=== PATIENT | female | born 1945 | race Caucasian/White ===

== ENCOUNTER 2020-09-16 11:01 | Inpatient (IN) | payer MEDICARE, SELFPAY ==
[2020-09-16] VITALS (13 sets, daily range): BP systolic 106–152; BP diastolic 39–86; PULSE 49–57; RESP 14–19; TEMP 35.5–36.4; O2SAT 93–100; BMI 53.0
--- NOTE | ~2020-09-16 | CT_ITS ---
EXAMINATION: CT brain wo con INDICATION: Slurred speech COMPARISON: None TECHNIQUE: Standard unenhanced head CT. The dose-length product (DLP) was 605.33 mGy-cm. The mA was a djusted according to patient size. Iterative reconstruction technique was employed. FINDINGS: There is no intracranial hemorrhage, acute infarction, or abnormal mass lesion. The ventric les are normal. There is no abnormal mass effect or midline shift. The newman-white matter differentiat ion is normal. The basal cisterns are patent. Changes in the globes are likely from ocular lens surge ry. There is near complete opacification of the right maxillary sinus. There is partial opacification of the ethmoidal air cells. A left mastoid effusion is noted. There is a rim calcified scalp lesion at the cranial vertex to the right of midline, likely benign. IMPRESSION: 1. No acute intracranial abnormality. 2. Sinus disease and left mastoid effusion. Reviewed, dictated and finalized at location A. GY OPERATIONS VICE PRESIDENT
--- NOTE | ~2020-09-16 | XR_ITS ---
EXAMINATION: XR knee LT 2V EXAM DATE: 09/16/2020 18:52 INDICATION: Left knee pain. TECHNIQUE: Frontal and lateral projections of the left knee. Correlation is made to contralateral kn ee same date. FINDINGS: There are no acute left knee fractures or dislocations identified. There is no subcutaneou s gas. There is moderate-sized joint effusion. There are no radiopaque foreign bodies. There is m oderate to severe primary osteoarthritis. IMPRESSION: 1. XR knee LT 2V exam without acute osseous findings. 2. Moderate-sized joint effusion. 3. Moderate to severe osteoarthritis. Reviewed, dictated and finalized at location A. RY CUTTER
--- NOTE | ~2020-09-16 | XR_ITS ---
EXAMINATION: XR knee RT 2V EXAM DATE: 09/16/2020 18:53 INDICATION: No known recent injury provided at this time. Pain of the right knee. TECHNIQUE: Frontal and lateral projections of the right knee. Correlation is made to contralateral k nee same date. FINDINGS: There are no acute right knee fractures or dislocations identified. There is no subcutaneo us gas. There is moderate-sized joint effusion. Peripherally calcified regions in the subcutaneous f at medially likely granulomas, chronic fat necrosis. There are no radiopaque foreign bodies. There i s moderate to severe primary osteoarthritis. IMPRESSION: 1. Right knee exam without acute osseous findings. 2. Moderate-sized joint effusion. 3. Moderate to severe osteoarthritis. Reviewed, dictated and finalized at location A. ET TECHNICIAN
--- NOTE | ~2020-09-16 | US_ITS ---
EXAMINATION: US abdomen limited EXAM DATE: 09/18/2020 12:18 INDICATION: Pancytopenia. Assess spleen size. TECHNIQUE: Multiple grayscale and Doppler images of the left upper quadrant were obtained (by a techn ologist who performed the scan) and subsequently reviewed. There is no prior study for comparison. FINDINGS: The spleen measures 11.0 cm maximal dimension, is normal in size and morphology. IMPRESSION: Normal spleen size. Reviewed, dictated and finalized at location A. RIMENTAL PHYSICIST IMPRESSION: Normal spleen size.
--- NOTE | ~2020-09-16 | US_ITS ---
EXAMINATION: US carotid duplex BI EXAM DATE: 09/17/2020 07:44 INDICATION: Stroke symptoms. Facial droop and slurred speech. TECHNIQUE: Grayscale, color and pulsed Doppler images of the cervical carotid arteries were obtained . The degree of vessel stenosis is placed in one of the following categories: normal, <50% stenosis, 50-69% stenosis, >=70% stenosis but less than near-occlusion, near-occlusion, or occlusion. Note that percent stenosis relative to normal distal artery lumen diameter is indirectly measured from velocit y measurements as described by Yuri, et al. Radiology 2003; 229:340-346. There is no prior study fo r comparison. FINDINGS: RIGHT SIDE: Right common carotid artery peak systolic velocity (PSV in cm/s): 134 Right bulb/internal carotid artery peak systolic velocity (PSV in cm/s): 132 Right internal carotid artery end diastolic velocity (EDV in cm/s): 13.6 Right ICA/CCA peak systolic ratio: 1.0 Right external carotid artery peak systolic velocity (PSV in cm/s): 136 Right vertebral artery antegrade flow: yes There is no focal plaque identified. LEFT SIDE: Left common carotid artery peak systolic velocity (PSV in cm/s): 132 Left bulb/internal carotid artery peak systolic velocity (PSV in cm/s): 124 Left internal carotid artery end diastolic velocity (EDV in cm/s): 13.6 Left ICA/CCA peak systolic ratio: 0.9 Left external carotid artery peak systolic velocity (PSV in cm/s): 184 Left vertebral artery antegrade flow: yes There is no focal plaque identified. IMPRESSION: 1. Normal right internal carotid artery. 2. Normal left internal carotid artery. Reviewed, dictated and finalized at location A. OLL BOOKKEEPER
--- NOTE | ~2020-09-16 | XR_ITS ---
XR chest 1V DATE: 09/16/2020 11:54 INDICATION: Cerebrovascular accident TECHNIQUE: AP chest COMPARISON: None FINDINGS: Normal heart size. There is moderate elevation of the right leaf of the diaphragm. The lung s appear clear of consolidation. No pleural effusion or pulmonary vascular congestion or pneumothorax . Diffuse osteopenia. IMPRESSION: Moderate elevation right leaf of diaphragm No active cardiopulmonary disease is evident Reviewed, dictated and finalized at location B. REL DESIGNER
--- NOTE | ~2020-09-16 | MR_ITS ---
EXAMINATION: MR brain/brain stem wo/w con EXAM DATE: 09/17/2020 12:51 INDICATION: Facial droop and slurred speech. Stroke like symptoms. TECHNIQUE: Magnetic resonance imaging (MRI) of the brain/brain stem obtained without contrast. Sagit nicanor T1, axial diffusion, gradient echo (T2*), T1, T2, FLAIR sequences obtained. Patient was then inj ected with 20 cc intravenous Multihance contrast. Axial and coronal postcontrast T1 weighted sequence s obtained. There is no prior study for comparison. FINDINGS: There are no areas of restricted diffusion to suggest acute infarction. There is no acute hemorrhage seen on the T2*, a hemosiderin sensitive sequence. No intraparenchymal brain mass lesion. There is mild periventricular and subcortical T2/FLAIR signal hyperintensity, nonspecific but probab ly related to small vessel ischemic disease (microangiopathy). There is mild prominence of the sulc i and ventricles related to cerebral atrophy. There are no extra-axial collections. Flow voids are seen in the cerebral arteries on the T2-weighted sequences consistent with their expected patency. Patient has had bilateral ocular lens surgery. Scalp vertex cystic lesion most likely sebaceous cyst . Completely opacified right maxillary sinus. Mild to moderate bilateral ethmoid mucoperiosteal thick ening. Moderate amount of left mastoid fluid, probably effusion. IMPRESSION: 1. No acute intracranial findings. 2. Chronic age related findings. 3. Completely opacified right maxillary sinus. Reviewed, dictated and finalized at location A. TER HAND
[2020-09-16 11:26] LABS: Glucose Point of Care 85 (65-105)
--- NOTE | 2020-09-16 11:27 | ECG_ITS ---
Measurements Intervals [place] Rate: 59 P: 80 DE: 267 QRS: 26 QRSD: 104 T: 120 QT: 458 QTc: 454 Interpretive Statements SINUS BRADYCARDIA WITH FIRST DEGREE AV BLOCK NONSPECIFIC ST & T-WAVE ABNORMALITY- INF/HIGH LAT LEADS BASELINE ARTIFACT- I, II, III, AVR, AVL, AVF, V1-V6 ABNORMAL ECG Electronically Signed On 09-16-2020 12:03:25 [employer] LABORATORY TECHNICIAN by Gabe Nuñez D.O.
[2020-09-16 11:39] LABS: Basophils Percent Auto 0.2 % (0.2-1.2); Eosinophils Absolute Auto 0.1 K/mm3 (0-0.3); Eosinophils Percent Auto 1.5 % (0-4.4); Hematocrit 33.2 % (37.0-47.0); Hemoglobin 10.6 g/dL (12.0-15.0); Immature Granulocyte Absolute 0.02 K/mm3 (0.00-0.031); Immature Granulocyte Percent A 0.4 % (0-0.5); Lymphocytes Absolute Auto 0.55 K/mm3 (0.9-3.2); Lymphocytes Percent Auto 11.6 % (18.3-44.2); Mean Corpuscular HGB Conc 31.9 g/dl (32-36); Mean Corpuscular Hemoglobin 30.5 pg (26-34); Mean Corpuscular Volume 95.4 fl (80-100); Mean Platelet Volume 9.8 fl (7.4-10.4); Monocytes Absolute Auto 0.4 K/mm3 (0.1-0.6); Monocytes Percent Auto 8.2 % (2.6-8.5); Neutrophils Absolute Auto 3.7 K/mm3 (1.3-6.7); Neutrophils Percent Auto 78.1 % (45.5-73.1); Platelet Count Result 64 k/mm3 (150-375); Red Blood Count 3.48 M/mm3 (4.2-5.4); Red Cell Distribution Width 14.7 % (11.5-14.5); White Blood Count 4.7 K/mm3 (4.5-10.0)
[2020-09-16 11:48] LABS: Prothrombin Time 13.6 Seconds (11.1-14.7)
[2020-09-16 11:49] LABS: Partial Thromboplastin Time 31.9 SECONDS (22.3-36.8)
[2020-09-16 11:51] LABS: Anion Gap 10 mmol/L (8-16); Blood Urea Nitrogen 28 mg/dL (7-17); Calcium 9.4 mg/dL (8.4-10.2); Carbon Dioxide 32 mmol/L (22-30); Chloride 101 mmol/L (98-107); Estimated CRCL calculation 53 ml/min; Estimated Glomerular Filt Rate 44; Glucose 86 mg/dL (65-105); Potassium 3.7 mmol/L (3.4-5.0); Sodium 143 mmol/L (137-145)
[2020-09-16 12:03] LABS: Troponin I < 0.012 ng/mL (0.000-0.034)
--- NOTE | 2020-09-16 13:43 | ED.NEUROSD ---
HPI - Neuro Symptoms/Deficit General Chief Complaint: Neuro Symptoms/Deficit Stated Complaint: slurred speech, limb weakness x2 days Source: patient Mode of arrival: ambulatory Limitations: no limitations History of Present Illness HPI Narrative: A 75-year-old female comes into the emergency department with complaints of slurred speech. Her niece presents with her and corroborates the patient's history. First patient endorses a history of Angulo's palsy. She states that this is unchanged. She presents with her niece who lives right on the road and is very close with the patient. The niece and the nieces mother, the patient's sister, speak to the patient daily. They noted that her symptoms started on Saturday and have been intermittent but seemingly progressing. They slurred speech current episode started yesterday and has not remitted. She denies any focal deficits but does endorse weakness in the bilateral lower extremities. She denies any numbness or tingling but states that this is rather related to chronic pain. Patient does acknowledge that her speech sounds normal to her however the family member sitting right there states that it is not. Related Data Allergies Allergy/AdvReac Type Severity Reaction Status Date / Time metoprolol Allergy Unknown itchy rash Verified 09/16/20 17:05 shellfish derived Allergy Hives Verified 09/16/20 17:05 Review of Systems Review of Systems: Narrative: CONSTITUTIONAL: Denies fever, chills, or sweats. EYES: Denies visual changes, redness, or discharge. ENT: Denies rhinorrhea, congestion, sore throat, or otalgia. CARDIOVASCULAR: Denies chest pain, palpitations, or edema. RESPIRATORY: Denies cough or dyspnea. GASTROINTESTINAL: Denies abdominal pain, nausea, vomiting, or diarrhea. GENITOURINARY: Denies dysuria or hematuria. SKIN: Denies rash or itching. MUSCULOSKELETAL: Denies back pain, joint pain, or myalgia. Endorses pain and weakness in the bilateral lower extremities NEUROLOGIC: Denies headache, numbness, dizziness, or weakness. Endorses slurred speech PSYCHIATRIC: Denies anxiety or depression. [facility] Past Medical History Medical History Chronic anemia Chronic kidney disease, stage 3 Baseline creatinine is around 1.30. Endometrial cancer (~06/2017) Stage IB, status post total hysterectomy with BSO. Patient of Dr. Bang Prasad at [place]. Essential hypertension Hyperlipidemia Not currently on medication. 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 Osteoarthritis Surgical History Surgical History History of bilateral cataract extraction History of total abdominal hysterectomy and bilateral salpingo-oophorectomy (~09/13/17) For treatment of endometrial adenocarcinoma, FIGO stage IB. Family History Family History Mother Diabetes mellitus Father Hypertension Cerebrovascular accident Social History Social History Social History: She lives in her own home in [place] with her 2 cats. She has no children. She will be 76 years old this summer and still works 40 hours a week in order to pay her bills. Former smoker, quit in 1991. No alcohol or illicit substance use. Her [id number], Yasmin Encinas, is her surrogate decision maker and she wishes to be a full code. Years smoked: 5 Smoking status: Former smoker Tobacco type: cigarettes Second hand tobacco smoke exposure: No Smoking end date: 07/29/91 Sexual Orientation (if Verbalized by the Patient): Straight or Heterosexual Spiritual care concerns: No Exam Narrative: Exam Narrative: GENERAL: Well-appearing, obese, and in no acute distress. HEAD: Normocephalic, atraumatic. EYES: PERRLA and EOMI. ENT: Nares clear, no rhinorrhea or epistaxis. Mucous membranes moist. NECK: Supple. No a
[2020-09-16 14:12] LABS: Add Urine Microscopic? YES; Appearance Urine Clear (Clear); Bacteria Urine Trace /hpf; Bilirubin Urine Negative (Negative); Blood Urine Negative (Negative); Color Urine Yellow (Yellow); Glucose Urine UA Negative (Negative); Hyaline Casts Urine 15-19 /lpf; Ketones Urine Trace mg/dL (Negative); Leukocyte Esterase Ur Negative LEU/UL (Negative); Mucus Urine Rare /lpf; Nitrate Urine Negative (Negative); Protein Urine Negative (Negative); RBC Urine 0-2 /hpf (0-2); Specific Grav Ur 1.017 (1.001-1.035); Squamous Epithelial Cell Urine Rare /hpf (Few); WBC Urine 0-3 /hpf
--- NOTE | 2020-09-16 16:52 | PC.NURSE ---
This patient, Akiko Encinas, was admitted to Medical Room 249-01. Patient/family oriented to hospital policies and general routines including ID bracelet, bed and alarms, visiting hours, pain management, procedures, bathroom and other care routines, personal items, smoking policy, room service/diet, and visiting hours. Information on how to activate the Rapid Response Team has been discussed. Patient/Family are encouraged to report perceived risks to care and to ask questions if they do not understand what they are told or what they should do.
--- NOTE | 2020-09-16 18:15 | PM.IMHP ---
H&P: HPI History of Present Illness Date/Time: 09/16/20 18:00 Chief Complaint: Slurred speech. Narrative: This is a pleasant 75-year-old female with hypertension and chronic kidney disease who presented to the emergency department earlier today via private vehicle from home for evaluation of slurred speech. She has a chronic left-sided Angulo's palsy however her speech has remained unaffected, although family members have noted that her speech seems slurred over the past couple of days and encouraged her to come in for evaluation. The patient herself does not really notice this slurred speech. In the emergency department she also reported generalized weakness, more so in the legs however with further questioning it sounds as though she has had chronic pain and stiffness in both knees which has gotten progressively worse. In fact she ambulates with a walker at home and uses a cane when at work, and more recently she is having an increasingly difficult time getting up from a seated position due to the knee pain. She denies vertigo, acute auditory visual changes, focal weakness, paresthesias, dysphagia, and palpitations. Review of Systems Review of Systems: Narrative: Twelve systems were reviewed with pertinent positives and negatives as per HPI. No fever, chills, or sweats. No recent cold or flu symptoms. No headache. No sinus issues or ear pain. She has had a chronic Angulo's palsy for about 8 years but is able to close her left eyelid. Mainly she has left mouth droop. No chest pain or shortness of breath. No lower extremity edema. No known history of congestive heart failure, coronary artery disease, or cardiac dysrhythmia. No gingival bleeding, epistaxis, or easy bruising. No known history of liver disease or blood dyscrasia. Except as documented, all other systems were reviewed and are negative. [facility] Past Medical History Medical History (Updated 09/16/20 @ 19:00 by Jolly De La Fuente PA-C) Chronic anemia Chronic kidney disease, stage 3 Baseline creatinine is around 1.30. Endometrial cancer (~06/2017) Stage IB, status post total hysterectomy with BSO. Patient of Dr. Bang Prasad at [place]. Essential hypertension Hyperlipidemia Not currently on medication. 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 Osteoarthritis Surgical History Surgical History (Updated 09/16/20 @ 18:56 by Jolly De La Fuente PA-C) History of bilateral cataract extraction History of total abdominal hysterectomy and bilateral salpingo-oophorectomy (~09/13/17) For treatment of endometrial adenocarcinoma, FIGO stage IB. Family History Family History Mother Diabetes mellitus Father Hypertension Cerebrovascular accident Social History Social History (Updated 09/16/20 @ 18:57 by Jolly De La Fuente PA-C) Social History: She lives in her own home in [place] with her 2 cats. She has no children. She will be 76 years old this summer and still works 40 hours a week in order to pay her bills. Former smoker, quit in 1991. No alcohol or illicit substance use. Her [id number], Yasmin Encinas, is her surrogate decision maker and she wishes to be a full code. Years smoked: 5 Smoking status: Former smoker Tobacco type: cigarettes Second hand tobacco smoke exposure: No Smoking end date: 07/29/91 Sexual Orientation (if Verbalized by the Patient): Straight or Heterosexual Spiritual care concerns: No Meds Home Medications and Allergies Home Medications Medication Instructions Recorded Confirmed Type amlodipine 10 mg tablet 10 mg PO DAILY #30 tablet 03/07/20 09/16/20 Rx carvedilol 12.5 mg tablet 12.5 mg PO Q12H #60 tablet 06/27/20 09/16/20 Rx lisinopril 20 2 tablet PO DAILY #60 tablet 06/27/20 09/16/20 Rx mg-hydrochlorothiazide 12.5 mg tablet Allergies Allergy/AdvReac Type Severity Reaction Status Date / Time metoprolol Allergy Unknown
[2020-09-16] MEDS: carvediloL 12.5 MG TABLET PO (20:14)
[2020-09-17] VITALS (9 sets, daily range): BP systolic 96–128; BP diastolic 40–70; PULSE 50–112; RESP 16–22; TEMP 35.8–36.6; O2SAT 94–98
[2020-09-17 06:04] LABS: Basophils Percent Auto 0.5 % (0.2-1.2); Eosinophils Absolute Auto 0.1 K/mm3 (0-0.3); Eosinophils Percent Auto 2.4 % (0-4.4); Hematocrit 32.3 % (37.0-47.0); Hemoglobin 10.3 g/dL (12.0-15.0); Immature Granulocyte Absolute 0.02 K/mm3 (0.00-0.031); Immature Granulocyte Percent A 0.5 % (0-0.5); Immature Platelet Fraction Pct 5.5 % (0.9-11.2); Lymphocytes Absolute Auto 0.65 K/mm3 (0.9-3.2); Lymphocytes Percent Auto 15.4 % (18.3-44.2); Mean Corpuscular HGB Conc 31.9 g/dl (32-36); Mean Corpuscular Hemoglobin 30.7 pg (26-34); Mean Corpuscular Volume 96.4 fl (80-100); Mean Platelet Volume 10.9 fl (7.4-10.4); Monocytes Absolute Auto 0.5 K/mm3 (0.1-0.6); Monocytes Percent Auto 10.9 % (2.6-8.5); Neutrophils Percent Auto 70.3 % (45.5-73.1); Platelet Count Result 73 k/mm3 (150-375); Red Blood Count 3.35 M/mm3 (4.2-5.4); Red Cell Distribution Width 14.7 % (11.5-14.5); White Blood Count 4.2 K/mm3 (4.5-10.0)
[2020-09-17 06:05] LABS: Alanine Aminotransferase 35 U/L (4-35); Albumin Level 3.8 g/dL (3.5-5.1); Alkaline Phosphatase 97 U/L (38-126); Aspartate Amino Transferase 50 U/L (14-36); Bilirubin,Total 0.7 mg/dL (0.2-1.3); Cholesterol 166 mg/dL (0-200); HDL Direct 71 mg/dL; Triglycerides 98 mg/dL (<150)
[2020-09-17 06:06] LABS: Anion Gap 6 mmol/L (8-16); Blood Urea Nitrogen 32 mg/dL (7-17); Calcium 9.6 mg/dL (8.4-10.2); Carbon Dioxide 30 mmol/L (22-30); Chloride 105 mmol/L (98-107); Estimated CRCL calculation 50 ml/min; Estimated Glomerular Filt Rate 44; Glucose 71 mg/dL (65-105); Potassium 3.5 mmol/L (3.4-5.0); Sodium 141 mmol/L (137-145)
[2020-09-17 06:16] LABS: LDL Cholesterol Direct 68 mg/dL
[2020-09-17 06:28] LABS: Iron 89 ug/dL (37-170)
[2020-09-17 06:39] LABS: Percent Iron Saturation 30 % (20-50)
[2020-09-17 07:10] LABS: Folic Acid 8.4 ng/mL (2.76->20)
[2020-09-17] MEDS: lisinopriL 20 MG TABLET 40 MG PO (08:56)
[2020-09-17] MEDS: amLODIPine BESYLATE 5 MG TABLET 10 MG PO (08:56)
[2020-09-17] MEDS: carvediloL 12.5 MG TABLET PO ×2 (08:56→21:28)
[2020-09-17] MEDS: hydroCHLOROthiazide 25 MG TABLET PO (08:56)
--- NOTE | 2020-09-17 12:53 | WPDNEURCNPN ---
Assessment and Plan Additional Plan stable carotid studies an MRI pending at present treatments Consult date: 09/17/20 Time Seen: 01:30 HPI: Akiko Encinas is a 75 year old female 75 years old right-handed female admitted to the hospital through the emergency room where she was brought by private vehicle from home for the complaints of slurred speech. Patient has history of chronic left-sided Angulo's palsy though her speech has remained on affected in the emergency room she also complained of generalized weakness more so in the lower extremities in addition to the chronic pain and stiffness which was gradually getting worse and also reported that she has been ambulating with a walker or else a cane when at work but having increasing difficulties because of the knee pain. she does have a history of stage III chronic renal disease, endometrial cancer with the total hysterectomy, essential hypertension, high Sineff lipidemia, osteoarthritis, and left-sided Angulo's palsy chronic in nature, she is a former smoker ending to smoke in on July 29, 1989 , taking only amlodipine 10 mg daily carvedilol 12.5 mg every 12 hours lisinopril 20 mg each 2 tablets daily with hydrochlorothiazide 12.5 mg, logic 2 metoprolol and initial vital signs stable. initial evaluation included x-rays of the knee revealing right knee moderate sized joint effusion with moderate to severe osteoarthritis, moderate joint effusion on the left knee with moderate to severe osteoarthritis, CBC hemoglobin 10.3 platelet count 73, BMP not significant and so as the UA, at present Doppler studies and MRI of the brain pending Review of Systems Review of Systems: All systems reviewed & are unremarkable except as noted in HPI and below PMFSH Past Medical History Medical History Chronic anemia Chronic kidney disease, stage 3 Baseline creatinine is around 1.30. Endometrial cancer (~06/2017) Stage IB, status post total hysterectomy with BSO. Patient of Dr. Bang Prasad at [place]. Essential hypertension Hyperlipidemia Not currently on medication. 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 Osteoarthritis Surgical History Surgical History History of bilateral cataract extraction History of total abdominal hysterectomy and bilateral salpingo-oophorectomy (~09/13/17) For treatment of endometrial adenocarcinoma, FIGO stage IB. Family History Family History Mother Diabetes mellitus Father Hypertension Cerebrovascular accident Social History Social History Social History: She lives in her own home in [place] with her 2 cats. She has no children. She will be 76 years old this summer and still works 40 hours a week in order to pay her bills. Former smoker, quit in 1991. No alcohol or illicit substance use. Her [id number], Yasmin Encinas, is her surrogate decision maker and she wishes to be a full code. Years smoked: 5 Smoking status: Former smoker Tobacco type: cigarettes Second hand tobacco smoke exposure: No Smoking end date: 07/29/91 Sexual Orientation (if Verbalized by the Patient): Straight or Heterosexual Spiritual care concerns: No Meds Home Medications and Allergies Home Medications Medication Instructions Recorded Confirmed Type amlodipine 10 mg tablet 10 mg PO DAILY #30 tablet 03/07/20 09/16/20 Rx carvedilol 12.5 mg tablet 12.5 mg PO Q12H #60 tablet 06/27/20 09/16/20 Rx lisinopril 20 2 tablet PO DAILY #60 tablet 06/27/20 09/16/20 Rx mg-hydrochlorothiazide 12.5 mg tablet Allergies Allergy/AdvReac Type Severity Reaction Status Date / Time metoprolol Allergy Unknown itchy rash Verified 09/16/20 17:05 shellfish derived Allergy Hives Verified 09/16/20 17:05 Vital Signs Vital Signs - 24 hr 09/16/20 13:01
--- NOTE | 2020-09-17 15:26 | PM.IMPN ---
Progress Note: A&P Assessment and Plan (1) Slurred speech: Code(s): R47.81 - Slurred speech Status: Acute Assessment and Plan: MRI negative for acute stroke although cannot rule out TIA -await echo and carotid Doppler -await neurology and Hematology's recommendations due to thrombocytopenia to see if we want to start aspirin therapy (2) Thrombocytopenia: Code(s): D69.6 - Thrombocytopenia, unspecified Status: Acute Assessment and Plan: New per patient -[facility] labs back in 05/2019 showed platelet count 196 -await Dr. Lackey recommendations (3) Bradycardia: Code(s): R00.1 - Bradycardia, unspecified Status: Acute Assessment and Plan: Non symptomatic -monitor on carvedilol (4) Essential hypertension: Code(s): I10 - Essential (primary) hypertension Status: Chronic Assessment and Plan: Last blood pressure 96/40 -patient does not feel lightheaded, dizzy or weak -if patient continues to have hypotension, consider medication changes (5) Chronic kidney disease, stage 3: Code(s): N18.30 - Chronic kidney disease, stage 3 unspecified Status: Chronic Assessment and Plan: Chronic and at baseline (6) Chronic anemia: Code(s): D64.9 - Anemia, unspecified Status: Chronic Assessment and Plan: Hemoglobin stable -no signs of bleeding on exam -monitor (7) Left-sided Angulo's palsy: Code(s): G51.0 - Angulo's palsy Status: Chronic Assessment and Plan: Chronic for about the last 10 years -MRI of the brain shows no acute stroke (8) Murmur: Code(s): R01.1 - Cardiac murmur, unspecified Status: Acute Assessment and Plan: Await echo (9) Bilateral knee effusions: Code(s): M25.461 - Effusion, right knee; M25.462 - Effusion, left knee Status: Acute Assessment and Plan: Likely due to OA -Pt should follow up with orthopedist -No infection suspected -Pt feels a little stiff -may consider rheumatology work up such as MCKENZIE, RF, ANCA -Will check ESR and uric acid tomorrow AM (10) Opacified maxillary sinus: Code(s): R93.0 - Abnormal findings on diagnostic imaging of skull and head, not elsewhere classified Status: Acute Assessment and Plan: Will try Augmentin -May want to follow up with ENT outpt Time Spent With Patient Time with patient: 25 - 35 minutes Subjective Date/time seen: 09/17/20 15:26 Interval history: Pt is a 75-year-old female here for stroke workup. Patient was seen today with family at bedside who states that her speech has gotten better. She is no longer having any slurred speech according to the daughter. The patient had never noticed this speech. The daughter states that a couple days ago she started having problems with articulating words and not so much word-finding. She has chronic Angulo's palsy and the left-sided facial droop but no other neurological changes were noted other than the slurred speech. The family states that they do not know about any history of thrombocytopenia. Pt denies nausea, vomiting, fevers, chills, constipation, diarrhea, chest pain, sob, or abdominal pain. Review of Systems Review of Systems: All systems reviewed & are unremarkable except as noted in HPI and below Exam Narrative: Exam Narrative: General: Well developed well nourished patient in NAD HEENT: normocephalic Neck: supple Neuro: Alert and oriented x4. Chronic left-sided facial droop, other than that, cranial nerves appear to be intact. Equal strength the upper lower extremities 5/5. Able to do rapid alternating movements and [id number]. CV:RRR with slight murmur Resp:CTA Abd: Soft, non distended. No pain to palpation. Positive bowel sounds Extremities: Mild chronic swelling, no erythema, warmth or pain to palpation. Objective Data Vital Signs Vital Signs: Vital Signs - 24 hr
--- NOTE | 2020-09-17 18:25 | ECHO_ITS ---
Patient Info Name: Akkio Encinas Age: 75 years : 1945 Gender: Female Ht: 64 in Wt: 309 lbs BSA: 2.61 m2 HR: 55 bpm BP: 128 / 70 mmHg Heart Rhythm: Bradycardia Technical Quality: Poor Exam Date: 09/17/2020 3:14 PM Exam Location: [facility] Patient Status: Inpatient Admit Date: 09/16/2020 Staff Ordering Physician: Jolly De La Fuente PA-C [employer] Display Rotator: Patricia Drake RDCS Attending Provider: Aliza Tolliver PA-C Referring Physician: Sudhakar MALHOTRA; Exam Type: CA echo dop color flow w con Contrast/Agitated Saline Contrast/Ag. Saline: Definity Amount: 4.00 ml Summary 1. Normal left ventricular size with mild concentric hypertrophy. Good systolic function of all segments with an ejection fraction visually of 60-65% and calculated 62%. No segmental wall motion abnormalities. Grade 1 diastolic dysfunction is present. 2. Left atrial chamber dimension is moderately enlarged. 3. There is moderate aortic valve sclerosis without stenosis. 4. There is mild tricuspid valve regurgitation. 5. No pulmonary hypertension, estimated pulmonary arterial systolic pressure is 35 mmHg. 6. There is heavy mitral annular calcification but no significant mitral stenosis. 7. Dilated inferior vena cava. 8. Sinus bradycardia. Left Ventricle Left ventricular chamber dimension is normal. Left ventricular systolic function is normal, estimated at 65-70%. There is mildly increased left ventricular wall thickness. Left ventricular septal wall motion is normal. The left ventricular diastolic function is grade I diastolic dysfunction. Right Ventricle Right ventricular chamber dimension is normal. Right ventricular systolic function is normal. Left Atria Left atrial chamber dimension is moderately enlarged. Right Atria Right atrial chamber dimension is normal. Aortic Valve The aortic valve is trileaflet. There is moderate aortic valve sclerosis without stenosis. There is no aortic valve stenosis. There is no aortic valve regurgitation. Pulmonic Valve The pulmonic valve is normal. There is no pulmonic valve stenosis. There is no pulmonic regurgitation. Mitral Valve The mitral valve has calcified annulus. There is no mitral valve stenosis. There is no mitral valve regurgitation. Tricuspid Valve The tricuspid valve leaflets are normal. There is no significant tricuspid valve stenosis. There is mild tricuspid valve regurgitation. No pulmonary hypertension, estimated pulmonary arterial systolic pressure is 35 mmHg. Pericardium/Pleural The pericardium appears normal. There is no pericardial effusion. Inferior Vena Cava Dilated inferior vena cava with >50% collapse upon inspiration consistent with Empty right atrial pressure, 10 mmHg. Aorta The aortic root size at the sinus of Valsalva is normal. The prox ascending aorta size is normal. Left Ventricular Outflow Tract Name Value Normal LVOT 2D LVOT Diameter 2.08 cm LVOT Doppler LVOT Peak Gradient 4 mmHg LVOT Mean Gradient 2 mmHg
[2020-09-17] MEDS: AMOXICILLIN 500 MG CAPSULE PO (21:29)
[2020-09-18] VITALS (7 sets, daily range): BP systolic 100–152; BP diastolic 40–70; PULSE 48–66; RESP 16–22; TEMP 36.1–36.2; O2SAT 93–95
[2020-09-18 05:45] LABS: Basophils Percent Auto 0.5 % (0.2-1.2); Eosinophils Absolute Auto 0.1 K/mm3 (0-0.3); Eosinophils Percent Auto 2.3 % (0-4.4); Hematocrit 29.9 % (37.0-47.0); Hemoglobin 9.5 g/dL (12.0-15.0); Immature Granulocyte Absolute 0.01 K/mm3 (0.00-0.031); Immature Granulocyte Percent A 0.2 % (0-0.5); Immature Platelet Fraction Pct 5.1 % (0.9-11.2); Lymphocytes Absolute Auto 0.79 K/mm3 (0.9-3.2); Mean Corpuscular HGB Conc 31.8 g/dl (32-36); Mean Corpuscular Hemoglobin 30.8 pg (26-34); Mean Corpuscular Volume 97.1 fl (80-100); Mean Platelet Volume 10.8 fl (7.4-10.4); Monocytes Absolute Auto 0.5 K/mm3 (0.1-0.6); Monocytes Percent Auto 11.6 % (2.6-8.5); Neutrophils Percent Auto 67.4 % (45.5-73.1); Platelet Count Result 68 k/mm3 (150-375); Red Blood Count 3.08 M/mm3 (4.2-5.4); Red Cell Distribution Width 15.3 % (11.5-14.5); White Blood Count 4.4 K/mm3 (4.5-10.0)
[2020-09-18] MEDS: AMOXICILLIN 500 MG CAPSULE PO ×2 (05:45→15:06)
[2020-09-18 05:59] LABS: Anion Gap 3 mmol/L (8-16); Blood Urea Nitrogen 40 mg/dL (7-17); CRP 1.1 mg/dL (<1.0); Calcium 9.3 mg/dL (8.4-10.2); Carbon Dioxide 34 mmol/L (22-30); Chloride 104 mmol/L (98-107); Estimated CRCL calculation 43 ml/min; Estimated Glomerular Filt Rate 37; Glucose 77 mg/dL (65-105); Potassium 3.4 mmol/L (3.4-5.0); Sodium 141 mmol/L (137-145); Uric Acid 9.2 mg/dL (2.5-7.5)
--- NOTE | 2020-09-18 09:02 | PM.CNOR ---
Assessment and Plan Assessment and plan (1) Osteoarthritis of knees, bilateral: Code(s): M17.0 - Bilateral primary osteoarthritis of knee Status: Acute Assessment and Plan: consultation patient evaluation for chief complaint bilateral knee stiffness. History, physical exam and radiographs reviewed with the patient. Radiographs show severe arthritis bilaterally. Exam findings show reduced range of motion otherwise benign. No effusion appreciated on exam. No erythema, warmth or signs of infection. Patient really does not have much in the way of knee pain just complains of knee crepitus and stiffness. Discussed the condition, nature, etiology and course of natural history with the patient. Treatment options were reviewed. Risks and benefits of each as well as alternatives reviewed. The patient's questions were answered. Conservative treatment ice, compression and elevation. Agree with physical therapy. Weightbearing as tolerated. Follow-up as needed. (2) Stiffness of both knees: Code(s): M25.661 - Stiffness of right knee, not elsewhere classified; M25.662 - Stiffness of left knee, not elsewhere classified Status: Acute History of Present Illness HPI Consult date: 09/18/20 Requesting physician: Polly Carias MD Consult reason: joint pain (Bilateral knee pain) Chief complaint: TIA Narrative: 75-year-old woman with known history of bilateral knee arthritis admitted through the emergency room to the hospital for slurred speech and further evaluation and treatment for possible stroke or TIA. While here complains of bilateral knee pain and leg weakness. Radiographs done which show advanced degenerative changes. Asked to see patient in consultation. Patient complains of bilateral knee pain for several years worse recently. Has not really had any treatment for it. Denies numbness or tingling. Denies any other systemic complaints associated with knees. Review of Systems Constitutional: Constitutional: Denies fever(s) Eyes: Eyes: Denies blurry vision ENT: Reports Normal hearing present Cardiovascular: Cardiovascular: Denies chest pain and Denies dyspnea Respiratory: Respiratory: Denies dyspnea and Denies wheezing Gastrointestinal: Gastrointestinal: Denies abdominal pain Genitourinary: Genitourinary: Denies urinary urgency Musculoskeletal: Musculoskeletal: Reports as per HPI and Denies numbness Integumentary/Breasts: Skin/Breast: Denies changing lesions and Denies sores Neurologic: Reports Normal hearing present, Denies numbness and Denies convulsions Psychiatric: Psychiatric: Denies confusion and Denies hallucinations Endocrine: Endocrine: Denies heat intolerance Hematologic/Lymphatic: Hematologic/Lymphatic: Denies easy bleeding Allergic/Immunologic: Allergic/Immunologic: Denies wheezing PMFSH Past Medical History Medical History (Updated 09/18/20 @ 09:20 by Diaz Arceo MD) Bilateral knee pain Chronic anemia Chronic kidney disease, stage 3 Baseline creatinine is around 1.30. Endometrial cancer (~06/2017) Stage IB, status post total hysterectomy with BSO. Patient of Dr. Bang Prasad at [facility]. Essential hypertension Hyperlipidemia Not currently on medication. 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 Osteoarthritis Osteoarthritis of knees, bilateral Stiffness of both knees Surgical History Surgical History History of bilateral cataract extraction History of total abdominal hysterectomy and bilateral salpingo-oophorectomy (~09/13/17) For treatment of endometrial adenocarcinoma, FIGO stage IB. Family History Family History Mother Diabetes mellitus Father Hypertension Cerebrovascular accident Social History Social History Social History: She lives in her own home in [facility]
--- NOTE | 2020-09-18 10:59 | PCSTNOTE ---
Bedside swallow evaluation complete. Please see ST evaluation for details and recommendations.
--- NOTE | 2020-09-18 11:13 | PM.DS ---
DS: Admitting Diagnosis Admitting Diagnosis Admitting Diagnosis: slurred speech DS: Discharge Diagnosis Discharge Diagnosis (1) Slurred speech: Code(s): R47.81 - Slurred speech Status: Acute Assessment and Plan: MRI negative for acute stroke although cannot rule out TIA as a diagnosis -Carotid neg for significant disease -Echo shows no etiologies -Spoke with hematology who doesn't recommend any aspirin due to pancytopenia (2) Thrombocytopenia: Code(s): D69.6 - Thrombocytopenia, unspecified Status: Acute Assessment and Plan: New per patient -[facility] back in 05/2019 showed platelet count 196 -Dr Lackey will see outpt and requested splen u/s and platelet antibodies -splen u/s WNL (3) Bradycardia: Code(s): R00.1 - Bradycardia, unspecified Status: Acute Assessment and Plan: Pt dropped to 30s overnight -Sinus betzaida -EVIN? Hypoventilation syndrome? -Will stop coreg and have pt f/u with pcp (4) Essential hypertension: Code(s): I10 - Essential (primary) hypertension Status: Chronic Assessment and Plan: Last blood pressure 152/70 but has been running low -patient does not feel lightheaded, dizzy or weak -hold coreg at discharge. pt has appointment on 09/20 with PCP and will discuss her medications at that time. (5) Chronic kidney disease, stage 3: Code(s): N18.30 - Chronic kidney disease, stage 3 unspecified Status: Chronic Assessment and Plan: Chronic and at baseline (6) Chronic anemia: Code(s): D64.9 - Anemia, unspecified Status: Chronic Assessment and Plan: Hemoglobin stable -no signs of bleeding on exam -monitor (7) Left-sided Angulo's palsy: Code(s): G51.0 - Angulo's palsy Status: Chronic Assessment and Plan: Chronic for about the last 10 years -MRI of the brain shows no acute stroke (8) Murmur: Code(s): R01.1 - Cardiac murmur, unspecified Status: Acute Assessment and Plan: Echo:1. Normal left ventricular size with mild concentric hypertrophy. Good systolic function of all segments with an ejection fraction visually of 60-65% and calculated 62%. No segmental wall motion abnormalities. Grade 1 diastolic dysfunction is present. 2. Left atrial chamber dimension is moderately enlarged. 3. There is moderate aortic valve sclerosis without stenosis. 4. There is mild tricuspid valve regurgitation. 5. No pulmonary hypertension, estimated pulmonary arterial systolic pressure is 35 mmHg. 6. There is heavy mitral annular calcification but no significant mitral stenosis. 7. Dilated inferior vena cava. 8. Sinus bradycardia. (9) Bilateral knee effusions: Code(s): M25.461 - Effusion, right knee; M25.462 - Effusion, left knee Status: Acute Assessment and Plan: Likely due to OA -Dr. Arceo saw while inpt, plan to f/u outpt -No infection suspected -Pt feels a little stiff -may consider rheumatology work up such as MCKENZIE, RF, ANCA if does not improve with OA tx (10) Opacified maxillary sinus: Code(s): R93.0 - Abnormal findings on diagnostic imaging of skull and head, not elsewhere classified Status: Acute Assessment and Plan: Continue amoxicillin DS: Summary Hospital Course Hospital Course: Patient is a 75-year-old female with a history of residual affects of Angulo's palsy with left-sided facial droop who presented to the emergency room for slurred speech. Vitals in the ER were temperature 35.5 degree C, pulse 57, respiratory rate 18, blood pressure 140/63, pulse ox 100 on room air. Initial CBCs showed pancytopenia with a white blood cell count 4.4, hemoglobin 9.5, hematocrit 29.9, platelets 68. CT of the brain showed no acute intracranial abnormality but did show sinus disease and left mastoid effusion. Chest x-ray was negative. She also complained of knee pain bilat
[2020-09-22 17:46] LABS: Platelet Ab,Indirect (IgA) POSITIVE (NEGATIVE); Platelet Ab,Indirect (IgG) POSITIVE (NEGATIVE); Platelet Ab,Indirect (IgM) NEGATIVE (NEGATIVE)
--- NOTE | 2020-09-23 10:42 | PC.NURSE ---
Plt antibody- positive. Ursula GOMEZ aware and faxed to PCP
== END 2020-09-18 16:15 | disposition home or self-care (01) | DRG 69 ==
LOC: ANHED 16:20 → ANH2MED 16:30
PROVIDERS: Physician Assistant; Admitting Provider Internal Medicine; Emergency Provider Emergency Medicine; PCP Family Medicine; Visit Provider Family Medicine
DX: G45.9 Transient cerebral ischemic attack, unspecified (principal); G51.0 Bell's palsy; R47.81 Slurred speech; I12.9 Hypertensive chronic kidney disease with stage 1 through stage 4 chronic kidney disease, or unspecified chronic kidney disease; N18.30 Chronic kidney disease, stage 3 unspecified; D64.9 Anemia, unspecified; D69.6 Thrombocytopenia, unspecified; Z87.891 Personal history of nicotine dependence; E78.5 Hyperlipidemia, unspecified; M17.0 Bilateral primary osteoarthritis of knee; R01.1 Cardiac murmur, unspecified; M25.462 Effusion, left knee; M25.461 Effusion, right knee
CPT/HCPCS: 36415; 70450; 70553; 71045; 73560; 76705; 80048; 80061; 80076; 81001; 82607; 82728; 82746; 82948; 83540; 83550; 83735; 84443; 84484; 84550; 85025; 85055; 85610; 85730; 86022; 86140; 92522; 92610; 93005; 93880; 97161; 97165; 99285; A9270; A9577; C8929; G0378; Q9957